=== PATIENT | female | born 1975 | race Caucasian/White ===

== ENCOUNTER 2023-11-28 08:42 | Inpatient (IN) | payer OTHER, SELFPAY ==
[2023-11-28] VITALS (7 sets, daily range): BP systolic 101–138; BP diastolic 61–89
[2023-11-28] MEDS: CARDIZEM CD PO (09:40)
[2023-11-28] MEDS: LEXAPRO PO (09:41)
[2023-11-28] MEDS: ELIQUIS PO (09:41)
--- NOTE | 2023-11-28 10:38 | CON.CAR ---
Addendum entered and electronically signed by Bo Del Cid MD 11/28/23 13:18:
48-year-old woman with recent onset of atrial fibrillation, had cardioversion x 2 with recurrence despite amiodarone therapy. Now admitted for dofetilide loading.
PMH: Nonischemic cardiomyopathy, EF 45-50%, hypertension, hyperlipidemia obesity, fibromyalgia
PSH: Orthopedic
Social: No alcohol or tobacco, , 2 sons on the autism spectrum, mother just
FH: Noncontributory
Allergies and meds as below,
Review of systems negative except as below
PE:124/77, pulse 64, respiratory rate 16, afebrile,
Head neck exam unremarkable, lungs clear irregular rate and rhythm, abdomen benign extremities without clubbing cyanosis or edema neuro nonfocal musculoskeletal intact
ECG atrial fibrillation, controlled ventricular response, nonspecific ST and T wave changes
Impression:
Persistent atrial fibrillation
Nonischemic cardiomyopathy, EF 45-50%,
Hypertension
Hyperlipidemia
Fibromyalgia
Obesity - Test 48-year-old woman with recent onset of atrial fibrillation, had cardioversion x 2 with recurrence despite amiodarone therapy. Now admitted for dofetilide loading.
PMH: Nonischemic cardiomyopathy, EF 45-50%, hypertension, hyperlipidemia obesity, fibromyalgia
PSH: Orthopedic
Social: No alcohol or tobacco, , 2 sons on the autism spectrum, mother just
FH: Noncontributory
Allergies and meds as below,
Review of systems negative except as below
PE:124/77, pulse 64, respiratory rate 16, afebrile,
Head neck exam unremarkable, lungs clear irregular rate and rhythm, abdomen benign extremities without clubbing cyanosis or edema neuro nonfocal musculoskeletal intact
ECG atrial fibrillation, controlled ventricular response, nonspecific ST and T wave changes
Impression:
Persistent atrial fibrillation
Nonischemic cardiomyopathy, EF 45-50%,
Hypertension
Hyperlipidemia
Fibromyalgia
Obesity - 45 pounds of weight loss with Maria Lu[facility] Pallin thus far, to start Zepbound
sleep apnea - compliant with CPAP
Plan:
Dofetilide loading
Cardioversion on
Original Note:
Consultation
Consultation Request
Date/Time Consultation Requested: 11/28/23
Date/Time Consultation Performed: 11/28/23
Performing Provider: Dr. HELADIO Del Cid
Reason for Consultation: H&P for direct admission for Tikosyn loading
Medical History
-
History of Present Illness:
Patient came to today as a direct admission for Tikosyn loading. Patient had been seen by Dr. Meir Campbell in the office 10/24/23 and remained in Afib. Patient had Afib in 08/2022 in the setting of perirectal abscess. She had a briefly
successful CV and then a failed CV. Patient was seen in the office 08/03/23 after the failed CV despite being on amiodarone therapy and they made a plan for direct admission for Tikosyn loading. Patient then had to cancel her direct admission due to
illness. Patient then saw Dr. Meir Campbell in the office 10/24/23 and again was agreeable to Tikosyn loading. Patient denies intercurrent illnesses. She has not missed any doses of Eliquis. She feels fatigued in Afib.
PMH:
Persistent Afib
diagnosed 08/2022
successful CV 09/2022, but recurred by 10/2022
EP eval and started on amiodarone 06/2023
unsuccessful CV despite amiodarone 07/2023
Chronic Eliquis OAC
CM EF 45-50% by echo 08/22/22
HTN
Hyperlipidemia
FMR
Obese, BMI 47
Past Medical History
Past Medical History: Other (in HPI)
Past Surgical History: Orthopedic
Social History
Tobacco: Non-Smoker
Alcohol: None
Drug: None
Personal:
Living: With Family
Family History
Family History: Cancer and Hypertension
Allergies / Home Medications
Allergy/AdvReac Type Severity Reaction Status Date / Time
levofloxacin [From Levaquin] Allergy muscle Verified 07/13/23 08:15
cramps
Penicillins Allergy Hives Verified 07/13/23 08:15
Medication Instructions Recorded Confirmed Type
montelukast 10 mg tablet 10 mg PO DAILY Lung/breathing 09/15/14 11/28/23 History
(Singulair) issues
levothyroxine 100 mcg tablet 100 mcg PO DAILY Thyroid 12/09/17 11/28/23 History
pantoprazole 40 mg tablet,delayed 40 mg PO DAILY Gastrointestinal 08/19/22 11/28/23 History
release issue
apixaban 5 mg tablet (Eliquis) 5 mg PO BID blood clot prevention 08/23/22 11/28/23 Rx
#60 tabs
escitalopram oxalate 20 mg tablet 20 mg PO DAILY Depression 09/29/22 11/28/23 History
(Lexapro)
cetirizine 10 mg tablet (Zyrtec) 10 mg PO DAILY Allergies 07/13/23 11/28/23 History
cyclobenzaprine 5 mg tablet 5 mg PO HS Pain 07/13/23 11/28/23 History
diltiazem HCl 240 mg 240 mg PO BID for afib 07/13/23 11/28/23 History
capsule,extended release 24 hr
lisinopril 20 mg tablet 20 mg PO DAILY Blood Pressure 07/13/23 11/28/23 History
metformin 1,000 mg tablet 1,000 mg PO DAILY dm 07/13/23 11/28/23 History
metoprolol succinate 25 mg capsule 25 mg PO DAILY Blood Pressure 07/13/23 11/28/23 History
sprinkle, ext. release 24 hr
gabapentin 300 mg tablet 300 mg PO HS 11/28/23 11/28/23 History
rosuvastatin 5 mg tablet (Crestor) 5 mg PO DAILY 11/28/23 11/28/23 History
trazodone 100 mg tablet 200 mg PO HS 11/28/23 11/28/23 History
Review of Systems
-
History Source: Patient
All other systems: Negative unless noted
Physical Exam
Vital Signs
124/77, HR 64, RR 16, temp 98.3 degrees Fahrenheit
GEN: NAD, AAOx3
HEENT: EOMI, MMM
LUNGS: CTA B/L, no wheezes or rales
CV: Irreg irreg, S1/S2, no murmur
ABD: soft, BS+, NT, ND
EXT: No clubbing, cyanosis, lesions or edema B/L
NEURO: Gross non-focal
SKIN: Warm, dry and pink.No rash
Lab Results
Hgb 12.7
BUN 29, Cre 0.7
Potassium 4.3, magnesium 2.0
ECG reviewed by me in Afib with controlled ventricular response at 66 bpm and QTc 434 ms
Impression / Plan
-
PCP: Dr. Emiliano Escalante
Cardiology: Dr. Meir Campbell
Impression:
Direct admission for Tikosyn load 11/28/23
Persistent Afib
diagnosed 08/2022
successful CV 09/2022, but recurred by 10/2022
EP eval and started on amiodarone 06/2023
unsuccessful CV despite amiodarone 07/2023
Chronic Eliquis OAC
CM EF 45-50% by echo 08/22/22
HTN
Hyperlipidemia
FMR
Obese, BMI 47
Echo 08/22/22: Definity used, EF 45-50%, mild global hypokinesis, mild to mod MR, mild TR with PAP 43 mmHg
Plan:
-Patient came to today as a direct admission for Tikosyn loading. Patient had been seen by Dr. Meir Campbell in the office 10/24/23 and remained in Afib. Patient had Afib in 08/2022 in the setting of perirectal abscess. She had a briefly
successful CV and then a failed CV. Patient was seen in the office 08/03/23 after the failed CV despite being on amiodarone therapy and they made a plan for direct admission for Tikosyn loading. Patient then had to cancel her direct admission due to
illness. Patient then saw Dr. Meir Campbell in the office 10/24/23 and again was agreeable to Tikosyn loading. Patient denies intercurrent illnesses. She has not missed any doses of Eliquis. She feels fatigued in Afib.
-CrCl calculated by me is 189 so will start Tikosyn 500 mcg q 12 hours
-Plan is to continue Lexapro and follow QTc.
-Cont usual dose of Toprol XL 25 mg daily. Outpatient dose of Cardizem CD was lowered to 240 mg daily due to HRs in the 60s prior to first Tikosyn dose.
-Cont Eliquis 5 mg BID
-CV if she fails to convert spontaneously
-EF was 45-50% 08/22/22 and this has been attributed to tachyarrhythmia around the time of initial Afib diagnosis.
[2023-11-28] MEDS: ZESTRIL PO (10:47)
[2023-11-28 10:53] LABS: Hematocrit 38.8 % (37.0-47.0); Hemoglobin 12.7 g/dL (12.0-16.0); Mean Corp Hgb Conc. 32.7 g/dL (33.0-37.0); Mean Corpuscular Hgb 29.1 pg (27.0-31.0); Mean Corpuscular Volume 88.8 fL (81.0-99.0); Mean Platelet Volume 9.3 fL (7.4-10.4); Platelet Count 239 10^3/uL (130-400); Red Blood Cell Count 4.37 10^6/uL (4.20-5.40); Red Cell Dist. Width 12.7 % (11.5-14.5); White Blood Cell Count 7.3 10^3/uL (4.8-10.8)
[2023-11-28 11:12] LABS: ALT (SGPT) 24 U/L (0-35); AST (SGOT) 23 U/L (14-36); Albumin 4.7 g/dl (3.5-5.0); Alkaline Phosphatase 82 U/L (38-126); Blood Urea Nitrogen 29 mg/dl (7-17); Calcium 10.1 mg/dl (8.4-10.2); Carbon Dioxide 29 mmol/L (22-30); Chloride 103 mmol/L (98-107); Glucose 92 mg/dl (70-99); Potassium 4.3 mmol/L (3.5-5.1); Sodium 138 mmol/L (135-145); Total Bilirubin 0.4 mg/dl (0.2-1.3); Total Protein 7.3 g/dl (6.3-8.2); eGFR > 60.00
[2023-11-28] MEDS: SINGULAIR PO (11:20)
--- NOTE | 2023-11-28 11:42 | W.CARD.TIKOS ---
Initiate Tikosyn
-
I verify that the patient has not taken any verapamil (Isoptin/Calan), ketoconazole (Nizoral), cimetidine (Tagamet), trimethoprim (Trimpex), trimethoprim/sulfamethoxazole (Bactrim), megesterol (Megace), prochlorperazine (Compazine),
hydrochlorothiazide (HCTZ), dolutegravir (Tivicay) or any Class I or Class III anti-arrhythmic within the last three days
AND
I verify that the patient has not taken amiodarone within the last THREE months, or that the patient's amiodarone plasma concentration is <0.3 mcg/mL.
Creatinine 0.7 mg/dL (0.6-1.0) 11/28/23 10:42
CrCl calculated by me is 198
Does patient have a Ventricular Conduction Abnormality: No
I have assessed the baseline QTc interval (using QT for heart rate less than 60 bpm) and deemed the patient is appropriate for Dofetilide therapy. I understand that Tikosyn is contraindicated if the QTc is >440msec (500msec in patients with
ventricular conduction abnormalities).
Baseline QTc (in msec): 434
Ordering Physician: Meir Campbell
--- NOTE | 2023-11-28 11:56 | CM ---
Chart reviewed. Patient is independent of ADLS, lives with her and 2 children in a 2 STH, 2 NACHO, 0 DME. Patient currently with no discharge needs. CM to follow
[2023-11-28] MEDS: TIKOSYN 500 MCG PO (12:39)
--- NOTE | 2023-11-28 16:19 | W.PN.UPDATE ---
Update Note
Progress Note Update
QTc prolonged to 520 after initial dose of Tikosyn 500 mcg this AM. Will reduce dose to 250 mcg with next dose scheduled for 2200 tonight and follow ECG.
--- NOTE | 2023-11-28 16:24 | CM ---
Pricing on Dofetilide at through patient's [facility] is $30. [facility] D[facility]ide 250 mcq in stock. I will confirm again once closer to discharge
--- NOTE | 2023-11-28 16:34 | PTCARENOTE ---
Pt sitting OOB in chair, offers no complaints.
[2023-11-28] MEDS: GLUCOPHAGE XR EXTENDED RELEASE 1000 MG PO (18:07)
--- NOTE | 2023-11-28 20:03 | PTCARENOTE ---
Assumed care of patient. NSR. VSS. RA. Denies pain. Plan of care discussed. Assessment per nursing flowsheet.
[2023-11-28] MEDS: ELIQUIS 5 MG PO (20:10)
[2023-11-28] MEDS: PROTONIX 40 MG PO (20:11)
[2023-11-28] MEDS: TOPROL XL 25 MG PO (20:11)
[2023-11-28] MEDS: FLEXERIL 5 MG PO (22:17)
[2023-11-28] MEDS: NEURONTIN 300 MG PO (22:17)
[2023-11-28] MEDS: DESYREL 100 MG PO (22:18)
[2023-11-28] MEDS: ZYRTEC 10 MG PO (22:18)
[2023-11-28] MEDS: TIKOSYN 250 MCG PO (22:18)
[2023-11-29] VITALS (9 sets, daily range): BP systolic 106–146; BP diastolic 63–79
--- NOTE | 2023-11-29 00:31 | PTCARENOTE ---
EKG shows NSR with QTC >500 and >15% over baseline QTC. TCarlene aware. No new orders.
[2023-11-29] MEDS: SYNTHROID 100 MCG PO (05:36)
--- NOTE | 2023-11-29 06:26 | PTCARENOTE ---
Dr. Ortiz made aware of QTc on 29 EKG. EKG to be done this am, hold tikosyn dose until seen by cardiology.
[2023-11-29 06:45] LABS: Blood Urea Nitrogen 23 mg/dl (7-17); Calcium 9.6 mg/dl (8.4-10.2); Carbon Dioxide 27 mmol/L (22-30); Chloride 101 mmol/L (98-107); Estimated Creatinine Clearance > 125 ml/min; Glucose 91 mg/dl (70-99); Sodium 138 mmol/L (135-145); eGFR > 60.00
--- NOTE | 2023-11-29 07:59 | W.PN.CARDCBS ---
Addendum entered and electronically signed by John Peña DO 11/29/23 10:57:
I saw and examined the patient.
The Leak Gang Supervisor's note was reviewed and I agree with the note.
Comment:
Remains in sinus rhythm after spontaneous conversion after second dose of Tikosyn.
Tikosyn dose has been steadily lowered given QTc setting of chronic Lexapro and trazodone.
Continue to monitor QTc closely with EKGs.
Continue telemetry.
Reviewed with electrophysiology
Original Note:
Today's Communication / Plan
-
Lower Tikosyn dose to 125 mcg and give dose now
Spontaneously converted to SR after second dose last night
Impression / Plan
-
PCP: Dr. Emiliano Escalante
Cardiology: Dr. Meir Campbell
Impression:
Direct admission for Tikosyn load 11/28/23
Persistent Afib
diagnosed 08/2022
successful CV 09/2022, but recurred by 10/2022
EP eval and started on amiodarone 06/2023
unsuccessful CV despite amiodarone 07/2023
Chronic Eliquis OAC
CM EF 45-50% by echo 08/22/22
HTN
Hyperlipidemia
FMR
Obese, BMI 47
Echo 08/22/22: Definity used, EF 45-50%, mild global hypokinesis, mild to mod MR, mild TR with PAP 43 mmHg
Plan:
-Initial ECG prior to Tikosyn was in Afib with QTc 434 ms. Patient given Tikosyn 500 mcg x1 Monday late morning, 11/28/23 and QTc 2 hours later was 520 ms. Tikosyn dose lowered to 250 mcg and second dose of Tikosyn given Monday night, 11/28/23 and
QTc 2 hours later was 515 ms. Patient spontaneously converted to SR after second dose of Tikosyn. Tikosyn dose held Wednesday morning, 11/29/23 and ECG repeated at 0758 with improved QTc to 483 ms. Start Tikosyn 125 mcg now
-Patient takes Lexapro and trazodone and plan from the office was to continue, but another option would be to stop Lexapro and see if QTc improves.
-HR in SR is in the 70s. Outpatient dose of Toprol XL 25 mg daily continued.
-Outpatient dose of Cardizem CD was lowered to 240 mg daily due to HRs in the 60s prior to first Tikosyn dose, consider stopping Cardizem CD.
-Cont Eliquis 5 mg BID
-EF was 45-50% 08/22/22 and this has been attributed to tachyarrhythmia around the time of initial Afib diagnosis.
HPI: Patient came to today as a direct admission for Tikosyn loading. Patient had been seen by Dr. Meir Campbell in the office 10/24/23 and remained in Afib. Patient had Afib in 08/2022 in the setting of perirectal abscess. She had a briefly
successful CV and then a failed CV. Patient was seen in the office 08/03/23 after the failed CV despite being on amiodarone therapy and they made a plan for direct admission for Tikosyn loading. Patient then had to cancel her direct admission due to
illness. Patient then saw Dr. Meir Campbell in the office 10/24/23 and again was agreeable to Tikosyn loading. Patient denies intercurrent illnesses. She has not missed any doses of Eliquis. She feels fatigued in Afib.
Progress Note - Regulatory Affairs Analyst
Subjective
Date of Service: November 29, 2023
No palpitations, she did not know that she was back in SR
Objective
Labs:
11/28/23 10:42
11/29/23 05:23
Labs
Hgb 12.7 g/dL (12.0-16.0) 11/28/23 10:42
Hct 38.8 % (37.0-47.0) 11/28/23 10:42
Plt Count 239 10^3/uL (130-400) 11/28/23 10:42
Sodium 138 mmol/L (135-145) 11/29/23 05:23
Potassium 4.0 mmol/L (3.5-5.1) 11/29/23 05:23
BUN 23 mg/dl (7-17) H 11/29/23 05:23
Creatinine 0.6 mg/dL (0.6-1.0) 11/29/23 05:23
Glucose 91 mg/dl (70-99) 11/29/23 05:23
Vital Signs and I&O:
Vital Signs
Temp Pulse Resp BP Pulse Ox
98 F 66 16 126/68 96
11/29/23 06:43 11/29/23 05:25 11/29/23 06:43 11/29/23 05:25 11/29/23 06:43
Vital Signs
Temp Pulse Resp BP Pulse Ox
98 F 66 16 126/68 96
11/29/23 06:43 11/29/23 05:25 11/29/23 06:43 11/29/23 05:25 11/29/23 06:43
Intake & Output
11/27/23 11/28/23 11/29/23 11/30/23
06:59 06:59 06:59 06:59
Intake Total 480 / 480
Balance 480 / 480
Physical Exam
Physical Exam
GEN: AAOx3
HEENT: MMM
LUNGS: No audible wheeze
CV: Reg
ABD: ND
EXT: No edema B/L
NEURO: Gross non-focal
SKIN: No rash
--- NOTE | 2023-11-29 08:05 | PTCARENOTE ---
Rec'd pt AAOx3 w/no CP or SOB. Pt w/stable VS. HR in the 60's & pt is in SR on telemetry monitoring. Pt c/o 02/11 anterior headache. Cardiology STATION MECHANIC APPRENTICE notified & STAT & PRN Tylenol orders rec'd. This RN administered Tylenol as ordered. AM EKG completed &
given to STATION MECHANIC APPRENTICE. 0900 Tikosyn dose on hold until dosing & time confirmed w/Dr Ortiz. Pt w/call chantelle within reach & plan of care ongoing.
[2023-11-29] MEDS: CARDIZEM CD 240 MG PO (09:24)
[2023-11-29] MEDS: CRESTOR 5 MG PO (09:24)
[2023-11-29] MEDS: ZESTRIL 20 MG PO (09:24)
[2023-11-29] MEDS: LEXAPRO 20 MG PO (09:25)
[2023-11-29] MEDS: SINGULAIR 10 MG PO (09:25)
[2023-11-29] MEDS: ELIQUIS 5 MG PO ×2 (09:25→20:04)
[2023-11-29] MEDS: TYLENOL 1000 MG PO ×2 (09:35→15:47)
--- NOTE | 2023-11-29 10:49 | CM ---
Chart reviewed. Patient is independent of ADLS, lives with her and 2 children in a 2 STH, 2 NACHO, 0 DME. [facility] Dof[facility]ide 125 mcq in stock, but will be able to get it in next day when they receive the order.
Patient will need a 3 days supply before going home. CM to follow
[2023-11-29] MEDS: TIKOSYN 125 MCG PO ×2 (10:56→22:14)
--- NOTE | 2023-11-29 16:57 | W.PN.UPDATE ---
Update Note
Progress Note Update
QTc stable with 125 mcg dosing this AM, cont 125 mcg q 12 hours. 3 day Rx sent to pharmacy. CV cancelled for tomorrow.
[2023-11-29] MEDS: GLUCOPHAGE XR EXTENDED RELEASE 1000 MG PO (18:35)
[2023-11-29] MEDS: TOPROL XL 25 MG PO (20:04)
[2023-11-29] MEDS: PROTONIX 40 MG PO (20:04)
[2023-11-29] MEDS: ZYRTEC 10 MG PO (20:08)
[2023-11-29] MEDS: DESYREL 100 MG PO (22:14)
[2023-11-29] MEDS: NEURONTIN 300 MG PO (22:14)
[2023-11-30] VITALS (8 sets, daily range): BP systolic 110–154; BP diastolic 63–103
--- NOTE | 2023-11-30 01:54 | PTCARENOTE ---
Pt. remains NSR this shift, rate 50's-70's. QTc 452 ms following dose #4 Tikosyn. No complaints pain/discomfort, pt. hopes to go home later today. Pt. currently sleeping.
[2023-11-30] MEDS: SYNTHROID 100 MCG PO (05:24)
[2023-11-30 05:27] LABS: Blood Urea Nitrogen 23 mg/dl (7-17); Calcium 9.6 mg/dl (8.4-10.2); Carbon Dioxide 26 mmol/L (22-30); Chloride 105 mmol/L (98-107); Estimated Creatinine Clearance > 125 ml/min; Glucose 90 mg/dl (70-99); Potassium 4.1 mmol/L (3.5-5.1); Sodium 138 mmol/L (135-145); eGFR > 60.00
--- NOTE | 2023-11-30 07:46 | W.PN.CARDCBS ---
Addendum entered and electronically signed by Grace Eastman PA-C 11/30/23 16:40:
[id number]
Addendum entered and electronically signed by Juliana Campbell MD 11/30/23 08:55:
I saw and examined the patient.
The Agricultural Engineering Teacher's note was reviewed and I agree with the note.
Comment: Stable overnight. QT interval stable. Few beats of NSVT noted had been reviewed by electrophysiology and stable.
Await next EKG and possible discharge today.
Patient counseled about weight loss.
Patient counseled about not adding supplements and contacting us with any new supplements or medication changes while she is on dofetilide.
Greater than 30 minutes total discharge time.
Original Note:
Today's Communication / Plan
-
continue tikosyn 125mcg Q12H
continue eliquis
continue toprol, cardizem
check mag
plan for DC to home later today pending QTc
Impression / Plan
-
PCP: Dr. Emiliano Escalante
Cardiology: Dr. Meir Campbell
Impression:
Direct admission for Tikosyn load 11/28/23
Persistent Afib
diagnosed 08/2022
successful CV 09/2022, but recurred by 10/2022
EP eval and started on amiodarone 06/2023
unsuccessful CV despite amiodarone 07/2023
Chronic Eliquis OAC
CM EF 45-50% by echo 08/22/22
HTN
Hyperlipidemia
FMR
Obese, BMI 47
Echo 08/22/22: Definity used, EF 45-50%, mild global hypokinesis, mild to mod MR, mild TR with PAP 43 mmHg
Plan:
-patient presented for tikosyn load
-tikosyn dose has needed to be down-titrated due to QT prolongation
-QTc improved on 125mcg Q12H. for 5th dose this morning
-with 4 beats of NSVT this AM. K stable. check mag. patient asymptomatic. not felt to be secondary to tikosyn as QTc not significantly prolonged
-Patient takes Lexapro and trazodone and plan from the office was to continue. If necessary, could consider stopping to see if this improves QT
-HRs stable. continue toprol 25mg daily, cardizem cd 240mg daily
-Cont Eliquis 5 mg BID
-EF was 45-50% 08/22/22 and this has been attributed to tachyarrhythmia around the time of initial Afib diagnosis. would consider reassessment as OP.
-will arrange OP cardiac follow up
-for DC to home later today pending QTc
-d/w nursing
HPI: Patient came to today as a direct admission for Tikosyn loading. Patient had been seen by Dr. Meir Campbell in the office 10/24/23 and remained in Afib. Patient had Afib in 08/2022 in the setting of perirectal abscess. She had a briefly
successful CV and then a failed CV. Patient was seen in the office 08/03/23 after the failed CV despite being on amiodarone therapy and they made a plan for direct admission for Tikosyn loading. Patient then had to cancel her direct admission due to
illness. Patient then saw Dr. Meir Campbell in the office 10/24/23 and again was agreeable to Tikosyn loading. Patient denies intercurrent illnesses. She has not missed any doses of Eliquis. She feels fatigued in Afib.
Progress Note - Sales Project Administrator
Subjective
Date of Service: November 30, 2023
Denies chest pain, shortness of breath. occasional feeling of palpitations overnight
Objective
Labs:
11/28/23 10:42
11/30/23 04:42
Labs
Hgb 12.7 g/dL (12.0-16.0) 11/28/23 10:42
Hct 38.8 % (37.0-47.0) 11/28/23 10:42
Plt Count 239 10^3/uL (130-400) 11/28/23 10:42
Sodium 138 mmol/L (135-145) 11/30/23 04:42
Potassium 4.1 mmol/L (3.5-5.1) 11/30/23 04:42
BUN 23 mg/dl (7-17) H 11/30/23 04:42
Creatinine 0.5 mg/dL (0.6-1.0) L 11/30/23 04:42
Glucose 90 mg/dl (70-99) 11/30/23 04:42
Vital Signs and I&O:
Vital Signs
Temp Pulse Resp BP Pulse Ox
97.4 F 61 16 110/76 98
11/30/23 07:16 11/30/23 04:35 11/30/23 07:16 11/30/23 04:35 11/30/23 07:16
Vital Signs
Temp Pulse Resp BP Pulse Ox
97.4 F 61 16 110/76 98
11/30/23 07:16 11/30/23 04:35 11/30/23 07:16 11/30/23 04:35 11/30/23 07:16
Intake & Output
11/27/23 11/28/23 11/29/23 11/30/23
07:59 07:59 07:59 07:59
Intake Total 480 / 480 1440 / 1440
Balance 480 / 480 1440 / 1440
Physical Exam
Physical Exam
GEN: No distress, awake, alert, oriented x3. obese
HEENT: supple, anicteric, mmm, eomi
LUNGS: CTA B/L, no wheezes/rales
CV: Reg, S1/S2, no murmur
ABD: soft, BS+, NT/ND
EXT: No cyanosis, clubbing, edema
NEURO: Gross non-focal
SKIN: Warm, pink, dry. No rash
[2023-11-30] MEDS: SINGULAIR 10 MG PO (08:00)
[2023-11-30] MEDS: ZESTRIL 20 MG PO (08:00)
[2023-11-30] MEDS: CARDIZEM CD 240 MG PO (08:00)
[2023-11-30] MEDS: LEXAPRO 20 MG PO (08:00)
[2023-11-30] MEDS: ELIQUIS 5 MG PO (08:00)
[2023-11-30] MEDS: TIKOSYN 125 MCG PO (08:00)
[2023-11-30] MEDS: CRESTOR 5 MG PO (08:00)
--- NOTE | 2023-11-30 08:05 | PTCARENOTE ---
Rec'd pt AAOx3 from prev nsg shift. Pt w/no CP or SOB. VS stable, BP 114/85, HR 60. Pt remains in SR on telemetry monitoring. Heart sounds regular. This RN administered 5th dose of PO Tikosyn as ordered. EKG ordered for 1000 for QTc monitoring. Pt
w/no addtl needs at this time. Plan of care ongoing.
--- NOTE | 2023-11-30 08:58 | W.DS.TRANS ---
DC Summary - Blender Helper
-
Discharge Instructions:
Discharge Diagnosis/Procedures afib, tikosyn load
Diet As tolerated
Activity As tolerated
Driving Restrictions As prior to admission
Bathing Restrictions None
Instructions:
Stand-Alone Forms:
Changes to Home Medications: Yes
Discharge Medications:
DC Medications w/original date entered in [employer]
montelukast 10 mg tablet (Singulair) 10 mg PO DAILY Lung/breathing issues 09/15/14
levothyroxine 100 mcg tablet 100 mcg PO DAILY Thyroid 12/09/17
pantoprazole 40 mg tablet,delayed release 40 mg PO DAILY Gastrointestinal issue 08/19/22
apixaban 5 mg tablet (Eliquis) 5 mg PO BID blood clot prevention #60 tabs 08/23/22
escitalopram oxalate 20 mg tablet (Lexapro) 20 mg PO DAILY Depression 09/29/22
cetirizine 10 mg tablet (Zyrtec) 10 mg PO DAILY Allergies 07/13/23
cyclobenzaprine 5 mg tablet 5 mg PO HS Pain 07/13/23
lisinopril 20 mg tablet 20 mg PO DAILY Blood Pressure 07/13/23
metformin 1,000 mg tablet 1,000 mg PO DAILY dm 07/13/23
metoprolol succinate 25 mg capsule sprinkle, ext. release 24 hr 25 mg PO DAILY Blood Pressure 07/13/23
gabapentin 300 mg tablet 300 mg PO HS Neurological Condition 11/28/23
rosuvastatin 5 mg tablet (Crestor) 5 mg PO DAILY High Cholesterol 11/28/23
trazodone 100 mg tablet 100 mg PO HS Sleep 11/28/23
budesonide-formoterol HFA 160 mcg-4.5 mcg/actuation aerosol inhaler (Symbicort) 2 puff inhalation R BIDPRN PRN SOB #1 g 11/30/23
diltiazem HCl 240 mg capsule,extended release 24 hr 240 mg PO DAILY for afib #0 caps 11/30/23
dofetilide 125 mcg capsule 125 mcg PO Q12 #60 caps 11/30/23
levothyroxine 100 mcg tablet 100 mcg PO DAILY AT 0700 #1 tab 11/30/23
Home Medication Changes
tikosyn is new
cardizem dose decreased
Pending Results: No
--- NOTE | 2023-11-30 09:10 | W.PN.UPDATE ---
Update Note
Progress Note Update
CTSP as noted to have increase in HR suddenly with some associated dizziness. EKG with likely atrial tachycardia. ordered 5mg IV lopressor now as BP stable. d/w nursing. will follow
--- NOTE | 2023-11-30 09:16 | PTCARENOTE ---
Pt rang for this RN, stating she 'feels lightheaded & that her heart is racing'. Pt noted to be in Afib w/HR in the 110'2-120's at rest. Stat EKG done & pt noted to be in SVT. Dr Juliana Campbell & KEE Eastman in to see pt. Pt's BP 146/103. 5mg
IV Lopressor IV given STAT. Repeat BP 147/94, w/HR on low 100's now. Pt w/no CP or SOB. Pt advised to stay in bed for now. Will continue to monitor.
[2023-11-30] MEDS: LOPRESSOR 5 MG IV (09:21)
[2023-11-30] MEDS: FLUSH (NSS) 2 FLUSH IV (09:21)
--- NOTE | 2023-11-30 09:34 | PTCARENOTE ---
Pt back in SR w/HR in the 60's at rest. Pt up to BR & HR remained in the 70's. Pt no longer feeling lightheaded or dizzy. Advised Housekeeping Aid.
[2023-11-30 09:44] LABS: Magnesium 2.1 mg/dl (1.6-2.3)
--- NOTE | 2023-11-30 11:01 | CM ---
Chart reviewed. Patient is independent of ADLS, lives with her and 2 children in a [address], 2 [facility], occasionally ambulates with a SPC. Plan is for the patient to return home. CM to follow
[2023-11-30] MEDS: TOPROL XL 25 MG PO (13:00)
--- NOTE | 2023-11-30 16:21 | W.PN.UPDATE ---
Update Note
Progress Note Update
patient remains in SR without recurrence of afib/atach. ok for DC on toprol 25mg BID, tikosyn 125mcg Q12H, eliquis 5mg BID.
--- NOTE | 2023-11-30 17:56 | PTCARENOTE ---
Pt's IV line & telemetry pack removed. Pt discharged to home w/personal belongings including cell phone & pugger helper. Pt's spouse providing transportation.
--- NOTE | 2023-12-01 07:13 | W.DS.TRANS ---
DC Summary - Insurance Billing Clerk
-
Discharge Instructions:
Discharge Diagnosis/Procedures afib, tikosyn load
Diet As tolerated
Activity As tolerated
Driving Restrictions As prior to admission
Bathing Restrictions None
Instructions:
Stand-Alone Forms:
Changes to Home Medications: Yes
Discharge Medications:
DC Medications w/original date entered in [facility]
montelukast 10 mg tablet (Singulair) 10 mg PO DAILY Lung/breathing issues 09/15/14
levothyroxine 100 mcg tablet 100 mcg PO DAILY Thyroid 12/09/17
pantoprazole 40 mg tablet,delayed release 40 mg PO DAILY Gastrointestinal issue 08/19/22
apixaban 5 mg tablet (Eliquis) 5 mg PO BID blood clot prevention #60 tabs 08/23/22
escitalopram oxalate 20 mg tablet (Lexapro) 20 mg PO DAILY Depression 09/29/22
cetirizine 10 mg tablet (Zyrtec) 10 mg PO DAILY Allergies 07/13/23
cyclobenzaprine 5 mg tablet 5 mg PO HS Pain 07/13/23
lisinopril 20 mg tablet 20 mg PO DAILY Blood Pressure 07/13/23
metformin 1,000 mg tablet 1,000 mg PO DAILY dm 07/13/23
gabapentin 300 mg tablet 300 mg PO HS Neurological Condition 11/28/23
rosuvastatin 5 mg tablet (Crestor) 5 mg PO DAILY High Cholesterol 11/28/23
trazodone 100 mg tablet 100 mg PO HS Sleep 11/28/23
budesonide-formoterol HFA 160 mcg-4.5 mcg/actuation aerosol inhaler (Symbicort) 2 puff inhalation R BIDPRN PRN SOB #1 g 11/30/23
dofetilide 125 mcg capsule 125 mcg PO Q12 #60 caps 11/30/23
levothyroxine 100 mcg tablet 100 mcg PO DAILY AT 0700 #1 tab 11/30/23
metoprolol succinate 25 mg capsule sprinkle, ext. release 24 hr 25 mg PO BID Blood Pressure #0 ea 11/30/23
Home Medication Changes
tikosyn is new.
cardizem cd is stopped
toprol has increased
Pending Results: No
== END 2023-11-30 18:01 | disposition home or self-care (01) | DRG 309 ==
LOC: IVU 08:42
PROVIDERS: Physician Assistant Medical; ADMITTING PHYSICIAN Internal Medicine Cardiovascular Disease; FAMILY PHYSICIAN Family Medicine; OTHER PHYSICIAN Internal Medicine Cardiovascular Disease
DX: I48.19 Other persistent atrial fibrillation (principal); Z68.42 Body mass index [BMI] 45.0-49.9, adult; Z79.01 Long term (current) use of anticoagulants; I10 Essential (primary) hypertension; E78.5 Hyperlipidemia, unspecified; E66.9 Obesity, unspecified
CPT/HCPCS: 80048; 80053; 83735; 85027; 93005

== ENCOUNTER → 2024-02-27 12:24 | Outpatient (REF) | payer OTHER, SELFPAY | LOC: WDC 12:24 | PROVIDERS: ATTENDING PHYSICIAN Obstetrics & Gynecology Gynecology; FAMILY PHYSICIAN Family Medicine | DX: Z12.31 Encounter for screening mammogram for malignant neoplasm of breast (principal) | CPT/HCPCS: 77063; 77067 ==

== ENCOUNTER → 2024-03-01 09:14 | Outpatient (REF) | payer OTHER, SELFPAY | LOC: WDC 09:14 | PROVIDERS: ATTENDING PHYSICIAN Obstetrics & Gynecology Gynecology; FAMILY PHYSICIAN Family Medicine | DX: R92.8 Other abnormal and inconclusive findings on diagnostic imaging of breast (principal) | CPT/HCPCS: 76642 ==

== ENCOUNTER 2024-03-26 06:07 | Day surgery (SDC) | payer OTHER, SELFPAY ==
[2024-03-12 09:06] VITALS: BMI 44.5
[2024-03-12 09:52] LABS: % Immature Granulocytes 0.2 % (0-0.5); % Lymphocytes 31.2 % (20.5-51.1); % Monocytes 6.6 % (1.7-9.3); Absolute Lymphocytes 1.9 10^3/uL (1.2-3.4); Absolute Monocytes 0.4 10^3/uL (0.1-0.6); Absolute Neutrophils 3.8 10^3/uL (1.4-6.5); Hematocrit 39.7 % (37.0-47.0); Hemoglobin 13.4 g/dL (12.0-16.0); Mean Corp Hgb Conc. 33.8 g/dL (33.0-37.0); Mean Corpuscular Hgb 30.2 pg (27.0-31.0); Mean Corpuscular Volume 89.4 fL (81.0-99.0); Mean Platelet Volume 9.8 fL (7.4-10.4); Nucleated Red Blood Cells % 0 %; Platelet Count 233 10^3/uL (130-400); Red Blood Cell Count 4.44 10^6/uL (4.20-5.40); Red Cell Dist. Width 12.2 % (11.5-14.5); White Blood Cell Count 6.1 10^3/uL (4.8-10.8)
[2024-03-12 10:08] LABS: INR 1.21; PT 15.1 Sec (11.4-14.6)
[2024-03-12 10:09] LABS: ALT (SGPT) 21 U/L (0-35); AST (SGOT) 22 U/L (14-36); Alkaline Phosphatase 79 U/L (38-126); Blood Urea Nitrogen 23 mg/dl (7-17); Carbon Dioxide 30 mmol/L (22-30); Chloride 102 mmol/L (98-107); Estimated Creatinine Clearance > 125 ml/min; Glucose 79 mg/dl (70-99); Magnesium 1.9 mg/dl (1.6-2.3); Potassium 4.2 mmol/L (3.5-5.1); Sodium 141 mmol/L (135-145); Total Bilirubin 0.6 mg/dl (0.2-1.3); Total Protein 7.5 g/dl (6.3-8.2); eGFR > 60.00
[2024-03-26] VITALS (11 sets, daily range): BP systolic 92–121; BP diastolic 60–82; BMI 45.3
[2024-03-26 08:53] LABS: ACT-LR - POC 242 Seconds (116-155)
[2024-03-26 09:13] LABS: ACT-LR - POC 311 Seconds (116-155)
[2024-03-26 09:39] LABS: ACT-LR - POC 319 Seconds (116-155)
--- NOTE | 2024-03-26 10:55 | PTCARENOTE ---
Monitor showing accelerated junctional rhythm @ rate 125 at 1041. Pt denies symptoms. BP 119/77. EKG done and given to [facility]. LUZMA spoke with DR Eleuterio Campbell. Orders placed for po metoprolol and tikosyn when pt able to take po.
--- NOTE | 2024-03-26 11:01 | ITS.CL.ABL ---
Pulmonary Function Technologist - Ablation
Ablation
Procedure Report:
ELECTROPHYSIOLOGIC STUDY AND POSSIBLE ABLATION
DATE: March 26, 2023
Primary Care Provider: Dr. Emiliano Escalante
Primary Automatic Profile Shaper Operator: Dr. Paulo Quigley
INDICATION:
Symptomatic Atrial Fibrillation.
Persistent
HISTORY: See H and P.
Symptomatic AF, poorly controlled with attempted medical therapy.
She was initially referred for electrophysiologic consultation in January [address] Paulo Quigley.
She has h/o atrial fibrillation. She underwent attempted cardioversion from symptomatic atrial fibrillation on July 13, 2023 while on amiodarone but cardioversion was unsuccessful. Subsequently decision was made to transition from amiodarone to
dofetilide and drug loading admission was planned for September 2023. She ultimately ended up canceling this admission because of an illness.
She was admitted 11/28/2023 for initiation of Tikosyn. She developed prolonged QT on high doses and ultimately was placed on 125 mcg twice a day with discharge QT of 452 ms. She spontaneously converted to sinus rhythm and did not require
cardioversion.�She did have brief run of an SVT that required IV Lopressor and NSVT. Her Cardizem was discontinued and she was placed on Toprol.�Of note patient takes Lexapro and trazodone and it was decided she could continue these medications with
close monitoring of QTc.
Complicating her management of atrial fibrillation is morbid obesity and obstructive sleep apnea. She is being followed closely by Dr. Andujar and has achieved weight loss. She is set to start Zepbound.
She carries the additional history of hypertension, fibromyalgia, hypothyroidism, dyslipidemia, gastroesophageal reflux disease and irritable bowel syndrome.
HAS-BLED: 0
CHADSVASc:
HTN
F Gender
PRESENTING RHYTHM: AF
HISTORY: See H and P.
Symptomatic AF, poorly controlled with attempted medical therapy.
ANTIARRHYTHMIC DRUG: Dofetilide 125 mcg twice daily
ANTICOAGULATION: Apixaban
'TIME-OUT': called and confirmed.
SEDATION/ANESTHESIA: provided via the anesthesia department using general anesthesia.
PROCEDURE:
Ultrasound Guidance performed by tn was utilized for femoral venous Vascular Access b/l.
A decapolar CS catheter was placed within the CS for mapping and pacing.
The intracardiac ultrasound catheter was positioned in the RA for continuous intracardiac ultrasound imaging.
Heparin bolus and infusion to target ACT at 300 -350 seconds was administered. Transseptal puncture was performed. This entailed advancing a sheath with dilator into the superior vena cava and withdrawing both (monitoring intracardiac ultrasound,
fluoroscopy and tip pressure) with the tip oriented toward the atrial septum. The fossa ovalis was engaged (indicated by sudden displacement of the sheath tip as well as tenting of the fossa seen on intracardiac ultrasound).
AcMeuugame transseptal system was used. Left atrial catheter position was confirmed by echocardiographic imaging, pressure monitoring (LA mean pressure 10 mm Hg) and fluoroscopy. The sheath was advanced over the dilator and positioned in the left
atrium.
The multipolar mapping catheter was initially positioned through the transseptal sheath for high density mapping.
Geometry and voltage mapping was performed using the Postini multipolar grid catheter. Navex was utilized for three-dimensional electroanatomical mapping.
A 3-D map was created using Navex. A 3-D reconstructed CT image was compared to the 3-D Navex map to assist in anatomic evaluation, mapping and ablation.
Initial map created in atrial fibrillation shows marked fractionation of the posterior wall of the left atrium.
The [employer] Pulse Select PFA catheter and system was used for cardiac ablation. Catheter positioning was guided and confirmed using both I.C.E. and fluoroscopy.
PV isolation approach was used to electrically isolate each PV ostia. Additional ablation lesion set was carried out due to her persistent atrial fibrillation, marked posterior wall left atrial fractionation, atrial fibrillation risk factors such
as morbid obesity, obstructive sleep apnea.
Remapping with the Postini multipolar grid catheter found that all PVPs were eliminated at each vein demonstrating entrance block. Also pacing from the multipolar mapping catheter around the the circumference of the ostia was performed at 10 ma and
2.0 msec output to assess for exit block. This demonstrated electrical isolation at each of the pulmonary vein ostia LSPV, LIPV, RSPV, RIPV. There was lack of complete posterior wall isolation with a thin cord or of electrical activation superior
to inferior along the posterior wall of the left atrium towards the antrums of the left sided pulmonary veins.
Additional energy applications/additional ablation set was required to accomplish full posterior wall isolation with both entrance and exit block
Programmed electrical stimulation failed to induce any arrhythmias.
While removing catheters, she developed short runs of what appears to be a junctional tachycardia. There is significant isolation of the cycle length ranging from 470 to 540 ms mapping catheters were repositioned to include a decapolar catheter
placed at the right ventricular apex and the grid mapping catheter placed at the right atrium. Pacing from the right ventricular apex was able to entrain the tachycardia and post pacing there is a VAV response before the tachycardia spontaneously
terminated several seconds later. Multiple attempts at reinduction including burst atrial pacing as well as delivery of atrial decremental extrastimuli failed to reinduce the tachycardia and therefore the procedure was terminated, catheter was
removed.
I.C.E. :
Pre-Ablation Post-Ablation
LVEF: 55 % 55 %
WMA: none none
Pericardial effusion: none none
COMPLICATIONS:
None
SUMMARY:
- Mapping and ablation to isolate the PVs
- Additional AF ablation set after PVI.
- 3-D Electroanatomical Mapping
- Intracardiac Ultrasound
Post ablation, I discussed today's findings and results with the patient's , Adan.
RECOMMENDATIONS:
- Observe in monitored bed.
- Maintain oral anticoagulation.
- Continue dofetilide 0.125 mg twice daily and Toprol-XL 25 mg twice daily at least until I see her back for reevaluation as an outpatient
- Office visit with me in 3 months.
- With limited mapping post ablation today she appears to have a junctional tachycardia which we will continue to treat with low-dose dofetilide and Toprol-XL. In 3 to 4 months if she does not recur with atrial fibrillation we could consider
stopping dofetilide while maintaining Toprol-XL 25 mg twice daily. If she continues to demonstrate symptomatic SVT we could consider bringing her back for full EP study for more complete diagnostic mapping.
- Continue strict compliance with CPAP therapy and continue attempts at healthy weight management/weight loss.
Copy to:
Dr. Emiliano Escalante
Dr. Paulo Quigley
[2024-03-26] MEDS: TOPROL XL 25 MG PO (11:30)
[2024-03-26] MEDS: TIKOSYN 125 MCG PO (11:31)
--- NOTE | 2024-03-26 15:43 | W.PN.UPDATE ---
Update Note
Progress Note Update
48 yo WF s/p PVI (same day) She denies cp, sob, mod back pain (Chronic), jackeline diet, voiding, b/l groins c/d/i, soft, EKG initially accelerated JR HR 110-120's, she was given her dofetilide and metoprolol and later converted to SR. She will continue
OAC Eliquis dose at 4pm at home. She will f/u Dr. Mcclellan in 3 mo. She is for dc/ home after 230p
SUMMARY:
- Mapping and ablation to isolate the PVs
- Additional AF ablation set after PVI.
- 3-D Electroanatomical Mapping
- Intracardiac Ultrasound
Post ablation, I discussed today's findings and results with the patient's , Adan.
RECOMMENDATIONS:
- Observe in monitored bed.
- Maintain oral anticoagulation.
- Continue dofetilide 0.125 mg twice daily and Toprol-XL 25 mg twice daily at least until I see her back for reevaluation as an outpatient
- Office visit with me in 3 months.
- With limited mapping post ablation today she appears to have a junctional tachycardia which we will continue to treat with low-dose dofetilide and Toprol-XL. In 3 to 4 months if she does not recur with atrial fibrillation we could consider
stopping dofetilide while maintaining Toprol-XL 25 mg twice daily. If she continues to demonstrate symptomatic SVT we could consider bringing her back for full EP study for more complete diagnostic mapping.
- Continue strict compliance with CPAP therapy and continue attempts at healthy weight management/weight loss.
Copy to:
Dr. Emiliano Escalante
Dr. Paulo Quigley
== END 2024-03-26 15:00 | disposition home or self-care (01) ==
LOC: CATH 06:07
PROVIDERS: ATTENDING PHYSICIAN Internal Medicine Cardiovascular Disease; FAMILY PHYSICIAN Family Medicine; OTHER PHYSICIAN Internal Medicine Cardiovascular Disease
DX: I48.0 Paroxysmal atrial fibrillation (principal); E06.3 Autoimmune thyroiditis; Z79.899 Other long term (current) drug therapy; I10 Essential (primary) hypertension; Z79.01 Long term (current) use of anticoagulants; I95.9 Hypotension, unspecified; E66.01 Morbid (severe) obesity due to excess calories; Z68.41 Body mass index [BMI] 40.0-44.9, adult; G47.33 Obstructive sleep apnea (adult) (pediatric); E78.5 Hyperlipidemia, unspecified; J45.909 Unspecified asthma, uncomplicated; K58.9 Irritable bowel syndrome, unspecified; K21.9 Gastro-esophageal reflux disease without esophagitis; M79.7 Fibromyalgia; M19.90 Unspecified osteoarthritis, unspecified site; G47.00 Insomnia, unspecified; F32.A Depression, unspecified; F41.9 Anxiety disorder, unspecified; Z79.51 Long term (current) use of inhaled steroids; Z79.84 Long term (current) use of oral hypoglycemic drugs; Z79.890 Hormone replacement therapy; Z88.0 Allergy status to penicillin; Z88.1 Allergy status to other antibiotic agents
CPT/HCPCS: C1732; C1894; C1733; C1730; C1892; C1766; C1769; 36415; 75572; 76937; 80053; 83735; 85025; 85347; 85610; 86850; 86900; 86901; 93005; 93656; 93657; C1760; Q9967

== ENCOUNTER → 2024-07-26 13:40 | Outpatient (REF) | payer OTHER, SELFPAY | LOC: CLAB 13:40 | PROVIDERS: ATTENDING PHYSICIAN Surgery | DX: Z87.19 Personal history of other diseases of the digestive system (principal) | CPT/HCPCS: 88305; 88341; 88342 ==

== ENCOUNTER → 2025-01-09 09:33 | Outpatient (REF) | payer OTHER, SELFPAY | LOC: HWRAD 09:33 | PROVIDERS: ATTENDING PHYSICIAN Student in an Organized Health Care Education/Training Program; FAMILY PHYSICIAN Family Medicine | DX: M25.512 Pain in left shoulder (principal) | CPT/HCPCS: 73030 ==

== ENCOUNTER → 2025-03-03 11:08 | Outpatient (REF) | payer OTHER, SELFPAY | LOC: WDC 11:08 | PROVIDERS: ATTENDING PHYSICIAN Obstetrics & Gynecology Gynecology; FAMILY PHYSICIAN Family Medicine | DX: Z12.31 Encounter for screening mammogram for malignant neoplasm of breast (principal) | CPT/HCPCS: 77063; 77067 ==